=== PATIENT | male | born 1960 | race Caucasian/White ===

== ENCOUNTER 2025-01-06 08:04 | Day surgery (SDC) | payer MEDICARE, OTHER, SELFPAY ==
[2024-12-24 12:39] VITALS: BMI 33.5
[2025-01-06] VITALS (16 sets, daily range): BP systolic 97–141; BP diastolic 52–102; BMI 31.8
[2025-01-06 11:32] LABS: ACT-LR - POC 199 Seconds (116-155)
[2025-01-06 11:50] LABS: ACT-LR - POC 253 Seconds (116-155)
--- NOTE | 2025-01-06 12:03 | ITS.CL.ABL ---
Hand Touch Up Painter - Ablation
Ablation
Procedure Report:
ELECTROPHYSIOLOGY ABLATION STUDY
DATE:: January 06, 2025�����������������������������REFERRING: Dr. Amy Hill
INDICATION: Paroxysmal supraventricular tachycardia in the form of atrial fibrillation.� Prior pulmonary vein isolation with a 28 mm cryoballoon in February 2022 presents with persistent atrial fibrillation
HISTORY: See H and P.��As above
ANTIARRHYTHMIC DRUG: Discussed class I class or antiarrhythmic patient opted for pulmonary vein isolation
PRE-PROCEDURE SHAKIRA: No intracardiac thrombus on intracardiac ultrasound
PRESENTING RHYTHM: A-fib
'TIME-OUT':��called and confirmed.
SEDATION/ANESTHESIA:��provided via the anesthesia department using general anesthesia (LMA).
INTRAVENOUS/ARTERIAL ACCESS:
Right femoral venous - 8Fr
Left femoral venous -10 Fr, 7 Fr
Ultrasound guidance for bilateral femoral vein access was utilized by me to obtain access with demonstration of normal anatomy
CHADS-VASC Score:
HAS-Bled Score
PROCEDURE:
1.��A decapolar CS catheter was placed within the CS for mapping and pacing.��This was also used as the reference catheter for the 3-D map.
2. The intracardiac ultrasound catheter was positioned in the RA to identify the FO for targeting of transseptal puncture, assist��in identification of the pulmonary vein ostia, monitoring pre and post ablation pulmonary vein flow velocities,
monitoring for 'bubble' formation during RF application as a sign of thermal injury,��and to monitor for pericardial effusion during mapping and ablation procedure.���Left atrial size, LV ejection fraction, and pulmonary vein flows were monitored
pre and post ablation procedure. The other valves were inspected and found to be free of significant regurgitation or stenosis.
3.��Half of the calculated heparin bolus was administered prior to the first transeptal puncture.��Transseptal puncture was performed to diagnose RA and LA pressure so that safetey of LA mapping and ablation could be further assessed, and to access
the left atrium and pulmonary veins for mapping and ablation.��This entailed advancing an 8 Fr SL-1 sheath with dilator into the superior vena cava and withdrawing both (monitoring intracardiac ultrasound, fluoroscopy and tip pressure) with the tip
oriented toward the atrial septum.��The fossa ovalis was engaged (indicated by sudden displacement of the sheath tip as well as tenting of the fossa seen on intracardiac ultrasound).��Left atrial access required a pass with the Brockenbrough needle
extended.��Left atrial catheter position was confirmed by pressure monitoring (RA mean pressure [ ] mm Hg and LA mean presure [ ] mm Hg), LA saturation ( [ ] %),��as well as fluoroscopy.��The sheath was advanced over the dilator and positioned in
the left atrium.��This procedure was repeated for the Agilis sheath.��The remainder of the calculated heparin bolus was administered and heparin was
infused to maintain ACT at 300 -350 seconds throughout the case.
4.��RA pacing was performed via the proximal decapolar poles and LA pacing was performed via the distal decapolr poles.
5. A quadrapolar catheter was first positioned at the His position for His Bundle recording which was tagged via the 3-D Navex sytem, and then passed to the RVA for RV pacing and recording.
6. The multipolar catheter and the Penta spline PFA catheter were placed in each of the LIPV, LSPV, RSPV and the RIPV.��In atrial fibrillation the pulmonary veins were isolated in wide nooksack fashion with entrance block confirmed. Interestingly in
sinus rhythm there was a small area of signal which was delayed at the anterior rome to the left inferior pulmonary vein which was approximately 250 ms delayed. This was addressed along with the posterior wall as below.
7.��Next, a 3-D map was created using Navex.���A 3-D reconstructed CT image was compared to the 3-D Navex map to assist in anatomic interpretation, mapping and ablation.��The CT image and the NavX image were fused.
8. Total 40 lesions were given to the left inferior pulmonary vein, roof posterior wall and floor of the left atrium. There was also additional substrate modification of the interatrial septum. Initial pass in the posterior wall roof and floor
demonstrated entrance block in all 4 pulmonary veins and the posterior wall. The patient was converted to sinus rhythm 1 200 J synchronized biphasic shock. At some we discovered with the multipolar catheter a sharp delayed signal in the left
inferior pulmonary vein which was addressed with olive and basket pose. Entrance next block was then confirmed in all 4 pulmonary veins, roof, floor, and posterior wall of the left atrium. EP study with atrial extrastimuli and burst atrial pacing
did not induce any other tachyarrhythmias.
9. Normal sinus node and AV node function noted.
TOTAL FLOURO TIME: 12.6 minutes 124 mGy
TOTAL RF DURATION: 0 minutes
REVERSAL OF HEPARIN: 35 yes mg of protamine, slow IV administration
COMPLICATIONS:
None
Intracardiac US shows no pericardial effusion post ablation.
SUMMARY:��
Complex left atrial mapping and ablation.
Isolation of the left inferior pulmonary vein, roof posterior wall and floor of the left atrium. With the Penta spine catheter as above. Entrance exit block confirmed in all the structures as above.
RECOMMENDATIONS:
1. Ambulate in 4 hours
2. Resume anticoagulation
3.� Consider same-day discharge
4.��With any further recurrence would initiate dofetilide or sotalol
Copy to: Dr. Amy Hill
--- NOTE | 2025-01-06 17:03 | W.PN.UPDATE ---
Update Note
Progress Note Update
Pt seen post PFA. Bilat groin sites without ht/bleeding, non tender. OOB ambulating, urinating without difficulty. Post EKG NSR w/inc RBBB as before, no acute changes. Resume eliquis tonight at usual time. Continue other meds as before. Followup
with Dr. Hill as scheduled. Home today if groin sites/tele remain stable.
== END 2025-01-06 17:00 | disposition home or self-care (01) ==
LOC: CATH 08:04
PROVIDERS: ATTENDING PHYSICIAN Internal Medicine Cardiovascular Disease; FAMILY PHYSICIAN Family Medicine; OTHER PHYSICIAN Internal Medicine Cardiovascular Disease
DX: I48.19 Other persistent atrial fibrillation (principal); I47.19 Other supraventricular tachycardia; I10 Essential (primary) hypertension; E78.5 Hyperlipidemia, unspecified; Z68.33 Body mass index [BMI] 33.0-33.9, adult; G47.33 Obstructive sleep apnea (adult) (pediatric); Z87.891 Personal history of nicotine dependence; F41.9 Anxiety disorder, unspecified; G47.00 Insomnia, unspecified; Q27.30 Arteriovenous malformation, site unspecified; M19.90 Unspecified osteoarthritis, unspecified site; K44.9 Diaphragmatic hernia without obstruction or gangrene; R26.9 Unspecified abnormalities of gait and mobility; K21.9 Gastro-esophageal reflux disease without esophagitis; Z79.899 Other long term (current) drug therapy; Z79.01 Long term (current) use of anticoagulants; I45.10 Unspecified right bundle-branch block; E66.9 Obesity, unspecified; I49.1 Atrial premature depolarization; Z98.890 Other specified postprocedural states; Z91.030 Bee allergy status
CPT/HCPCS: C1732; C1894; C1730; C1759; C1892; 85347; 93005; 93656; 93657; C1733; C1766